=== PATIENT | female | born 2000 | race Caucasian/White ===

== ENCOUNTER 2021-02-10 21:50 | Emergency (ER) | payer OTHER ==
[2021-02-11] MEDS ORDERED: NAPROSYN375 MG PO (00:10)
[2021-02-11] MEDS ORDERED: FLEXERIL5 MG PO (00:11)
== END 2021-02-11 00:26 | disposition home or self-care (01) ==
LOC: FER 21:50
DX: S16.1XXA Strain of muscle, fascia and tendon at neck level, initial encounter (principal); S00.93XA Contusion of unspecified part of head, initial encounter; V49.40XA Driver injured in collision with unspecified motor vehicles in traffic accident, initial encounter; Y92.410 Unspecified street and highway as the place of occurrence of the external cause
CPT/HCPCS: 70450; 72125